=== PATIENT | male | born 1990 | race Caucasian/White ===

== ENCOUNTER 2017-03-04 05:12 | Emergency (ER) | payer BC, OTHER ==
--- NOTE | 2017-03-04 06:23 | ED ---
Lower Extremity Injury HPI - General Chief Complaint: Extremity Injury, Lower Stated Complaint: foot injury Time Seen by Provider: 03/04/17 05:25 Source: patient Mode of arrival: wheelchair Limitations: no limitations - History of Present Illness Initial Comments: This patient is 26-year-old man who presents from the other hospital, where he had gone tonight after having a foot fracture. The patient states that he had been drinking, and that he was walking in street and stepped into a pothole. He is not sure how his foot landed, but he experienced the snapping sensation and then he was not able to bear weight. He went to the other hospital where he had x-rays that reportedly had shown a Lisfranc injury. The patient requested to come here as he has [facility]. MD Complaint: foot injury Onset/Timin -: hour(s) Injury: Foot: Right Type of Injury: unknown Place: street/outdoors Severity: severe Improves With: nothing Worsens With: weight bearing, movement, palpation Context: fall Associated Symptoms: snap/pop sensation, swelling, unable to bear weight Treatments Prior to Arrival: splint - Related Data Home Medications Medication Instructions Recorded Confirmed Naproxen Sodium [Aleve] 220 mg PO Q12HR 12/29/13 12/29/13 Previous Rx's Medication Instructions Recorded Hydrocodone/Acetaminophen [Elverta 1 each PO Q6HR PRN #20 tab 03/04/17 5-325] Allergies Allergy/AdvReac Type Severity Reaction Status Date / Time cefaclor [From Ceclor] Allergy Unknown Verified 03/04/17 05:20 Childhood sulfamethoxazole Allergy Unknown Verified 03/04/17 05:20 [From Septra] Childhood trimethoprim [From Septra] Allergy Unknown Verified 03/04/17 05:20 Childhood Review of Systems ROS Statement: Those systems with pertinent positive or pertinent negative responses have been documented in the HPI. ROS Other: All systems not noted in ROS Statement are negative. Respiratory: Denies: cough, dyspnea Cardiovascular: Denies: chest pain, syncope Gastrointestinal: Denies: abdominal pain, vomiting Musculoskeletal: Reports: as per HPI, joint swelling, arthralgia Skin: Denies: lesions Neurological: Denies: weakness, numbness, paresthesias Hematological/Lymphatic: Denies: easy bleeding Past Medical History Additional Past Medical History / Comment(s): CROHN'S. kidney stones. History of Any Multi-Drug Resistant Organisms: None Reported Past Surgical History: Cholecystectomy, Orthopedic Surgery Additional Past Surgical History / Comment(s): lithotripsy. Past Anesthesia/Blood Transfusion Reactions: No Reported Reaction Past Psychological History: No Psychological Hx Reported Smoking Status: Current every day smoker Past Alcohol Use History: Occasional Past Drug Use History: None Reported General Exam Limitations: no limitations General appearance: alert, in no apparent distress Cardiovascular Exam: Present: regular rate, other (Normal capillary refill) GI/Abdominal exam: Present: soft. Absent: distended, tenderness, guarding, rebound Left Foot/Toe exam: Present: tenderness, swelling, deformity Neurovascular tendon exam: Absent: pulse deficit, abnormal cap refill, sensory deficit, pallor Back exam: Absent: vertebral tenderness Neurological exam: Present: alert. Absent: motor sensory deficit Skin exam: Present: warm, dry, intact, normal color. Absent: rash Course Vital Signs 03/04/17 03/04/17 05:17 06:48 Temperature 99 F 98.7 F Pulse Rate 110 H 98 Respiratory 16 18 Rate Blood Pressure 127/82 105/60 O2 Sat by Pulse 94 L 97 Oximetry - Reevaluation(s) Reevaluation #1: 03/04/17 06:45 Case is discussed with Dr. Kidd, who states that they are not taking primary call and requests that primary call physician be used. Medical Decision Making - Medical Decision Making Case discussed with laurita rangel, who reviewed the films states patient will require higher level of care to reduce the dislocation and repair. Case discussed with patient and he requests closest facility Case discussed with Ab[facility] Polo and they will accept transfer. Disposition Clinical Impression: Lisfranc dislocation Disposition: OTHER INSTITUTION NOT DEFINED Condition: Fair Instructions: Foot Fracture in Adults (ED) Prescriptions: Hydrocodone/Acetaminophen [Elverta 5-325] 1 each PO Q6HR PRN #20 tab PRN Reason: Pain Referrals: Aide Mar MD [Primary Care Provider] - 1-2 days Donte Estrada MD [STAFF PHYSICIAN] - 1-2 days - Out of Hospital Transfer - Req. Specs Out of Hospital Transfer - Requested Specifics: Other Emergency Center
[2017-03-04 06:49] VITALS: BP 105/60; PULSE 98; RESP 18; TEMP 98.7
[2017-03-04] MEDS ORDERED: HYDROcodone/APAP 7.5-325MG 1 EACH TAB PO ONE (07:03)
== END 2017-03-04 07:38 | disposition short-term general hospital (02) ==
LOC: EC 05:12
DX: S93.324D Dislocation of tarsometatarsal joint of right foot, subsequent encounter (principal); F17.200 Nicotine dependence, unspecified, uncomplicated; Z79.1 Long term (current) use of non-steroidal anti-inflammatories (NSAID); Z88.1 Allergy status to other antibiotic agents; W17.2XXD Fall into hole, subsequent encounter
CPT/HCPCS: 99284